=== PATIENT | male | born 1935 | race African-American/Black ===

== ENCOUNTER 2018-11-06 09:18 | Day surgery (SDC) | payer MEDICARE, BC ==
[2018-11-06] MEDS: LACTATED RINGER'S 1,000 ML IV (11:02)
[2018-11-06] MEDS ORDERED: CEFAZOLIN 1 GM INJ (11:41)
[2018-11-06] MEDS ORDERED: PROPOFOL 100 ML (11:41)
[2018-11-06] MEDS ORDERED: ROPIVACAINE 0.5 % 30 ML VIAL (11:42)
[2018-11-06] MEDS ORDERED: FENTAnyl 50 MCG/ML VIAL (11:42)
[2018-11-06] MEDS: CEFAZOLIN 2 GM/50 ML (PMX) 50 ML IVPB (12:00)
[2018-11-06] MEDS ORDERED: METOCLOPRAMIDE 10 MG INJ IV (12:00)
[2018-11-06] MEDS ORDERED: ONDANSETRON 4 MG INJ IV (12:00)
[2018-11-06] MEDS ORDERED: LABETALOL HCL 20MG INJ IV (12:00)
[2018-11-06] MEDS ORDERED: OXYCODONE/ACETAMINOPHEN (5/325) TAB PO (12:00)
[2018-11-06] MEDS ORDERED: HYDROmorphONE 1 MG/5 ML IV SYRINGE IV ×3 (12:00)
[2018-11-06] MEDS ORDERED: hydrALAzine 20 MG INJ IV (12:00)
[2018-11-06] MEDS ORDERED: EPHEDrine 25 MG/5 ML SYG IV (12:00)
[2018-11-06] MEDS ORDERED: FENTAnyl 50 MCG/ML VIAL IV ×2 (12:00)
[2018-11-06] MEDS: TRIAMCINOLONE ACET 40 MG/ML INJ (12:32)
[2018-11-06] MEDS: BUPIVACAINE 0.25% (MPF) 30 ML INJ (12:32)
[2018-11-06] MEDS ORDERED: SUCCINYLCHOLINE CHLORIDE 100 MG/5 ML SYG IV (12:42)
[2018-11-06] MEDS ORDERED: PHENYLephrine (100 MCG/ML) 10ML SYG (12:42)
[2018-11-06] MEDS ORDERED: ONDANSETRON 4 MG INJ (12:42)
[2018-11-06] MEDS ORDERED: DEXAMETHASONE 4 MG/ML 5 ML INJ (12:42)
[2018-11-06] MEDS ORDERED: METOCLOPRAMIDE 10 MG INJ (12:42)
== END 2018-11-06 15:54 | disposition home or self-care (01) ==
LOC: SDS 09:18
DX: M21.611 Bunion of right foot (principal); M20.41 Other hammer toe(s) (acquired), right foot; I10 Essential (primary) hypertension; E78.5 Hyperlipidemia, unspecified; Z87.891 Personal history of nicotine dependence
CPT/HCPCS: 28285; 73630